=== PATIENT | male | born 1985 | race Caucasian/White ===

== ENCOUNTER 2018-10-15 09:54 | Emergency (ER) | payer MEDICAID, OTHER ==
[~2018-10-15] VITALS: Ht 170.2 cm; Wt 65.9 kg
[2018-10-15] MEDS ORDERED: SULF1TAB49 PO (12:04)
[2018-10-15] MEDS ORDERED: IBUP-1984 PO (12:04)
[2018-10-15 12:29] VITALS: BP 121/83
== END 2018-10-15 12:30 | disposition home or self-care (01) ==
LOC: ER 09:55
DX: S90.511D Abrasion, right ankle, subsequent encounter (principal); L03.115 Cellulitis of right lower limb; Z88.1 Allergy status to other antibiotic agents; Z79.2 Long term (current) use of antibiotics; Z79.899 Other long term (current) drug therapy; X50.1XXA Overexertion from prolonged static or awkward postures, initial encounter; Y93.89 Activity, other specified; Y92.89 Other specified places as the place of occurrence of the external cause; Y99.8 Other external cause status
CPT/HCPCS: 73610; 99283

== ENCOUNTER 2019-12-20 15:39 | Emergency (ER) | payer MEDICAID, OTHER ==
[~2019-12-20] VITALS: Ht 170.2 cm; Wt 62.0 kg
[2019-12-20 15:42] VITALS: BP 118/79
== END 2019-12-20 17:03 | disposition home or self-care (01) ==
LOC: ER 15:40
DX: M70.22 Olecranon bursitis, left elbow (principal); Y93.89 Activity, other specified
CPT/HCPCS: 73090; 99283